=== PATIENT | female | born 1995 | race Caucasian/White ===

== ENCOUNTER 2021-07-25 03:22 | Observation (INO) | payer BC ==
[~2021-07-25] VITALS: Wt 65.9 kg
[2021-07-25 03:54] LABS: BASO # 0.1 K/mm3 (0.0-0.2); BASO % 0.6 % (0.0-2.0); EOS # 0.1 K/mm3 (0.0-0.7); EOS % 0.6 % (0.0-4.0); GRAN # 9.9 K/mm3 (1.4-6.5); GRAN % 78.9 % (42.2-75.2); HEMATOCRIT 43.8 % (37.0-47.0); HEMOGLOBIN 14.1 g/dl (12.5-16.0); LYMPH # 1.7 K/mm3 (1.2-3.4); LYMPH % 13.2 % (20.0-51.0); MEAN CELL VOLUME 89 fl (80.0-100.0); MEAN CORPUSCULAR HEMOGLOBIN 29 pg (27-31); MEAN CORPUSCULAR HGB CONC 32 g/dl (33.0-37.0); MEAN PLATELET VOLUME 9.6 fl (7.4-10.4); MONO # 0.8 K/mm3 (0.1-0.6); MONO % 6.4 % (1.7-9.3); PLATELET COUNT 263 K/mm3 (130-400); RED BLOOD COUNT 4.93 M/mm3 (4.10-5.30); REDCELL DISTRIBUTION WIDTH-CV 13.4 % (11.5-14.5)
[2021-07-25 04:14] LABS: ALBUMIN 4.3 gm/dL (3.5-5.0); BILIRUBIN,TOTAL 0.6 mg/dL (0.2-1.2); C-REACTIVE PROTEIN 0.02 mg/dL (0.00-0.50); CALCIUM 9.1 mg/dL (8.4-10.2); CREATININE, serum 0.88 mg/dL (0.57-1.11); MAGNESIUM 1.9 mg/dL (1.6-2.6); POTASSIUM 3.3 mmol/L (3.5-4.5); TOTAL PROTEIN 7.4 gm/dL (6.2-8.1)
[2021-07-25 04:44] LABS: COLLECTION METHOD CLEAN CATCH
[2021-07-25 05:11] LABS: PH 7 (5-8); URINE APPEARANCE Turbid (CLEAR/HAZY); URINE BACTERIA Rare (NONE SEEN); URINE BILIRUBIN Negative (NEGATIVE); URINE BLOOD 1+ (NEGATIVE); URINE COLOR Yellow (YELLOW); URINE GLUCOSE Negative (NEGATIVE); URINE KETONE Negative (NEGATIVE); URINE LEUKOCYTE ESTERASE 3+ (NEGATIVE); URINE NITRATE Negative (NEGATIVE); URINE PROTEIN(semi-quant) Negative (NEGATIVE); URINE RBC 0-2 /hpf (0-2); URINE UROBILINOGEN Negative (NEGATIVE)
[2021-07-25 14:32] VITALS: BP 115/73; PULSE 74; TEMP 98
--- NOTE | 2021-07-25 14:35 | NUR ---
pt was not on the floor
--- NOTE | 2021-07-25 14:36 | NUR ---
PT WAS NOT ON THE FOOR AT THIS TIME
--- NOTE | 2021-07-25 14:37 | NUR ---
PT WAS NOT ON THE FLOOR AT THE TIME
--- NOTE | 2021-07-25 14:38 | NUR ---
PT WAS NOT ON THE FLOOR THIS TIME
--- NOTE | 2021-07-25 14:39 | NUR ---
PT WAS STIL AT [facility] AT THIS TIME
[2021-07-25 16:04] VITALS: BP 115/73; PULSE 84; TEMP 98
[2021-07-25 16:07] VITALS: BP 116/76; PULSE 79; TEMP 98
[2021-07-25 20:13] VITALS: BP 129/81; PULSE 97; TEMP 98
[2021-07-25 23:36] VITALS: BP 140/92; PULSE 111; TEMP 98.1
[2021-07-26 04:13] VITALS: BP 129/79; PULSE 108; TEMP 98.2
[2021-07-26 09:27] VITALS: BP 134/89; PULSE 84; TEMP 98.1
[2021-07-26] MEDS ORDERED: NORCO 325 MG-51 TAB PO (10:28)
--- NOTE | 2021-07-26 11:46 | NUR ---
PT MET [facility] FOR DISCHARGE, VSS, PAIN CONTROLLED. LAP SITES ARE C,D,I. IV REMOVED WITHOUT COMPLICATIONS, CATHETER INTACT. DISCHARGE INSTRUCTIONS REVIEWED, PT VERBALIZED UNDERSTANDING. PT AWARE OF F/U APPT AND OF PRESCRIPTIONS TO [facility]. PT DC TO HOME VIA AMBULATORY ACCOMPANIED BY THIS NURSE.
== END 2021-07-26 11:48 | disposition home or self-care (01) ==
LOC: COL.ER 03:22 → INPTSU 12:07 → SDCO 12:07 → SURG 12:07 → COL.ER 12:07 → SURG 15:10 → INPTSU 15:10 → SURG 07-26 11:48 → SDCO 07-26 11:48
PROVIDERS: Emergency Medicine; ADMIT Surgery
DX: K80.12 Calculus of gallbladder with acute and chronic cholecystitis without obstruction (principal); K21.9 Gastro-esophageal reflux disease without esophagitis; F90.9 Attention-deficit hyperactivity disorder, unspecified type; F17.210 Nicotine dependence, cigarettes, uncomplicated; Z79.899 Other long term (current) drug therapy
CPT/HCPCS: OP; G0378; J0330; J0690; J0696; J1100; J1885; J2370; J2405; J2704; J3010; J7120; Q9967